=== PATIENT | female | born 1945 | race Caucasian/White ===

== ENCOUNTER → 2017-07-25 10:24 | Outpatient (CLI) | payer MEDICARE, OTHER, SELFPAY ==
[2017-07-25 11:51] LABS: Alanine Aminotransferase 22 IU/L (9-52); Albumin 4.3 g/dL (3.5-5.0); Albumin Globulin Ratio 1.3 (1.0-2.8); Alkaline Phosphatase 99 U/L (38-126); Aspartate Aminotransferase 25 IU/L (14-36); BUN Creatinine Ratio 27.5 (6-22); Bilirubin Total 0.6 mg/dL (0.2-1.3); Blood Urea Nitrogen 22 mg/dL (7-17); Calcium 9.5 mg/dL (8.4-10.2); Carbon Dioxide 26 mmol/L (22-32); Chloride 104 mmol/L (98-107); Cholesterol 219 mg/dL (140-199); Estimated Glomerular Filt Rate > 60.0 mL/min (>60); Globulin 3.2 g/dL (1.7-4.1); Glucose 95 mg/dL (80-110); HDL Cholesterol 60 mg/dL (40-60); HEMOLYSIS < 15 (0-50); LDL Cholesterol Calculated 128 mg/dL (<100); Potassium 4.1 mmol/L (3.4-5.1); Sodium 142 mmol/L (137-145); Total Protein 7.5 g/dL (6.3-8.2); Triglycerides 156 mg/dL (35-150)
== END ==
PROVIDERS: PCP Student in an Organized Health Care Education/Training Program; Visit Provider Student in an Organized Health Care Education/Training Program
DX: I10 Essential (primary) hypertension (principal)
CPT/HCPCS: 36415; 80053; 80061

== ENCOUNTER → 2017-07-26 13:49 | Outpatient (CLI) | payer MEDICARE, OTHER, SELFPAY | PROVIDERS: Family Provider Hospitalist; PCP Student in an Organized Health Care Education/Training Program; Visit Provider Student in an Organized Health Care Education/Training Program | DX: M85.832 Other specified disorders of bone density and structure, left forearm (principal) | CPT/HCPCS: 77080; 77081 ==

== ENCOUNTER → 2018-01-10 12:01 | Outpatient (CLI) | payer MEDICARE, OTHER, SELFPAY ==
--- NOTE | 2018-01-10 | DI.MG.S_ITS ---
BILATERAL DIGITAL SCREENING MAMMOGRAM 3D/2D WITH CAD: 01/10/2018 CLINICAL: Routine screening. Personal history of left breast cancer. Family history of breast cancer. Comparison is made to exams dated: 10/19/2016 mammogram, 10/19/2015 mammogram, and 10/13/2014 mammogram - [facility]. There are scattered fibroglandular elements in both breasts. Current study was also evaluated with a Computer Aided Detection (CAD) system. There are benign post operative findings in both breasts. There are a grouped calcifications in the right breast at 12 o'clock middle depth. There are a grouped calcifications in the left breast at 1 o'clock middle depth. No other significant masses or calcifications are seen in either breast. IMPRESSION: INCOMPLETE: NEEDS ADDITIONAL IMAGING EVALUATION The grouped calcifications in the right breast at 12 o'clock middle depth are indeterminate. Spot magnification views are recommended. The grouped calcifications in the left breast at 1 o'clock middle depth are indeterminate. Additional views with possible ultrasound are recommended. NOTE: For mammograms, a report in lay terms will be sent to the patient. Approximately 15% of breast malignancies will not be visualized mammographically. In the management of a palpable breast mass, a negative mammogram must not discourage biopsy of a clinically suspicious lesion. Electronically Signed By: Shante chakraborty/:01/10/2018 14:20:24 letter sent: Additional Imaging Needed ACR BI-RADS Category 0: Incomplete 3340F
== END ==
PROVIDERS: PCP Student in an Organized Health Care Education/Training Program; Visit Provider Student in an Organized Health Care Education/Training Program
DX: Z12.31 Encounter for screening mammogram for malignant neoplasm of breast (principal); Z85.3 Personal history of malignant neoplasm of breast; Z80.3 Family history of malignant neoplasm of breast
CPT/HCPCS: 77063; 77067

== ENCOUNTER → 2018-01-30 14:10 | Outpatient (CLI) | payer MEDICARE, OTHER, SELFPAY ==
--- NOTE | 2018-01-30 | DI.US.S_ITS ---
LIMITED ULTRASOUND OF LEFT BREAST: 01/30/2018 CLINICAL: Follow up from addtional views. Comparison is made to exams dated: 01/30/2018 mammogram, 01/10/2018 mammogram - [facility], 10/19/2016 and 10/19/2015 mammogram - [facility]. Real-time and Doppler ultrasound of the left breast upper outer quadrant were performed. Carter scale images of the real-time examination were reviewed. There is no ultrasound correlate for the previously noted increasing multiple grouped amorphous calcifications in the upper outer left breast at middle depth seen on comparison screening mammograms and described on diagnostic mammograms performed earlier today. There is demonstration of a known biopsy clip in the upper left breast, seen on comparison mammography. IMPRESSION: SUSPICIOUS OF MALIGNANCY There is no ultrasound correlate for the previously noted increasing multiple grouped amorphous calcifications in the upper outer left breast at middle depth seen on comparison screening mammograms and described on diagnostic mammograms performed earlier today. A two-site stereotactic biopsy is recommended. These results and recommendations were discussed with the patient at the time of the exam by the [facility] Radiologist Dr. Lance Ibrahim in person. Patient was notified that she would have to travel to the [facility] facility to undergo stereotactic biopsy, which she agreed to do. This exam was interpreted at Station ID: [id number]. Electronically Signed By: Carlos Lei M.D. ecl/:01/30/2018 18:50:37 letter sent: Biopsy Required Ultrasound BI-RADS: 4a Suspicious abnormality - low suspicion for malignancy
--- NOTE | 2018-01-30 | DI.US.S_ITS ---
LIMITED ULTRASOUND OF RIGHT BREAST: 01/30/2018 CLINICAL: Follow up from addtional views. Comparison is made to exams dated: 01/30/2018 mammogram, 01/10/2018 mammogram - [facility], 10/19/2016 and 10/19/2015 mammogram - [facility]. Real-time and Doppler ultrasound of the right breast 11-1 o'clock region were performed. Carter scale images of the real-time examination were reviewed. There is no ultrasound correlate for the previously noted 0.3 cm new grouped amorphous calcifications in the upper central right breast at middle depth (near the 12 o'clock position) on comparison screening and diagnostic mammograms. Targeted ultrasound also identifies an irregular hyperechoic region consistent with postsurgical scarring in the upper outer right breast at 11 o'clock position. This scarring demonstrates no vascularity on Doppler ultrasound. IMPRESSION: SUSPICIOUS OF MALIGNANCY No ultrasound correlate for the previously noted 0.3 cm new grouped amorphous calcifications in the upper central right breast at middle depth (near the 12 o'clock position) seen on screening and diagnostic mammography. A stereotactic biopsy is recommended. These results and recommendations were discussed with the patient at the time of the exam by the [facility] Radiologist Dr. Lance Ibrahim in person. Patient was notified that she would have to travel to the [facility] facility to undergo stereotactic biopsy, which she agreed to do. This exam was interpreted at Station ID: [id number]. Electronically Signed By: Carlos Lei M.D. ecl/:01/30/2018 18:51:06 letter sent: Biopsy Required Ultrasound BI-RADS: 4a Suspicious abnormality - low suspicion for malignancy
--- NOTE | 2018-01-30 | DI.MG.S_ITS ---
BILATERAL DIGITAL DIAGNOSTIC MAMMOGRAM 3D/2D POST LUMPECTOMY: 01/30/2018 CLINICAL: Additional evaluation requested from prior study. Personal history of breast cancer. Family history of breast cancer. Comparison is made to exams dated: 01/10/2018 mammogram - [facility], 10/19/2016 mammogram, and 10/19/2015 mammogram - [facility]. There are scattered fibroglandular elements in both breasts. There is a biopsy clip in the upper outer left breast at middle depth. There are multiple grouped amorphous calcifications in the upper outer left breast at middle depth. Two dominant groupings are identified. The more anterior superior group measures approximately 1.3 x 0.7 x 1.0 cm in extent and the more posterior inferior group measures approximately 0.6 x 0.5 x 0.6 cm in extent. These groupings have both increased since prior comparison exams. Postsurgical changes are identified in the upper outer right breast at posterior depth. There is an overlying linear scar marker. There are new grouped amorphous calcifications in the upper central right breast at middle depth (near the 12 o'clock position). This grouping measures 0.3 x 0.2 x 0.2 cm in extent. These calcifications are located approximately 3.5 cm medial to the postsurgical changes in the upper outer right breast. IMPRESSION: INCOMPLETE: NEEDS ADDITIONAL IMAGING EVALUATION 1) Increasing grouped amorphous calcifications in the upper outer left breast at middle depth. A targeted ultrasound is recommended for further evaluation. 2) New grouped amorphous calcifications in the upper central right breast at middle depth. A targeted ultrasound is recommended for further evaluation. This exam was interpreted at Station ID: [id number]. NOTE: For mammograms, a report in lay terms will be sent to the patient. Approximately 15% of breast malignancies will not be visualized mammographically. In the management of a palpable breast mass, a negative mammogram must not discourage biopsy of a clinically suspicious lesion. Electronically Signed By: Carlos Lei M.D. ecl/:01/30/2018 15:27:01 letter sent: Additional Imaging Needed ACR BI-RADS Category 0: Incomplete 3340F
== END ==
PROVIDERS: PCP Student in an Organized Health Care Education/Training Program; Visit Provider Student in an Organized Health Care Education/Training Program
DX: R92.1 Mammographic calcification found on diagnostic imaging of breast (principal); Z85.3 Personal history of malignant neoplasm of breast; Z80.3 Family history of malignant neoplasm of breast
CPT/HCPCS: 76642; 77066; G0279

== ENCOUNTER → 2018-05-10 15:49 | Outpatient (CLI) | payer MEDICARE, OTHER, SELFPAY ==
--- NOTE | 2018-05-10 | DI.RAD.S_ITS ---
PROCEDURE: XR KNEE LT 1TO2V INDICATIONS: PAIN IN LEFT KNEE TECHNIQUE: 2 views of the knee were acquired. COMPARISON: None. FINDINGS: Bones: No fractures or dislocations. No suspicious bony lesions. There is mild tricompartmental knee joint degeneration. Soft tissues: Kakwm-tg-vceonkye joint effusion. No suspicious soft tissue calcifications. IMPRESSION: Mild degenerative joint disease and small to moderate knee joint effusion. Dictated by: Lino Rod M.D. on 05/10/2018 at 17:41 Approved by: Lino Rod M.D. on 05/10/2018 at 17:42
== END ==
PROVIDERS: PCP Student in an Organized Health Care Education/Training Program; Visit Provider Student in an Organized Health Care Education/Training Program
DX: M25.562 Pain in left knee (principal); M17.12 Unilateral primary osteoarthritis, left knee; M25.462 Effusion, left knee
CPT/HCPCS: 73560

== ENCOUNTER → 2018-07-13 12:56 | Outpatient (CLI) | payer MEDICARE, OTHER, SELFPAY ==
--- NOTE | 2018-07-13 | DI.RAD.S_ITS ---
PROCEDURE: XR KNEE RT 3V INDICATIONS: RIGHT KNEE PAIN TECHNIQUE: 3 views of the knee were acquired. COMPARISON: [facility], [place], XR KNEE LT 1TO2V, 05/10/2018, 15:48. FINDINGS: Bones: Mild to moderate compartment osteophyte is seen. No fractures or dislocations. No suspicious bony lesions. No patella subluxation. Soft tissues: There is small to moderate suprapatellar joint effusion.. No suspicious soft tissue calcifications. IMPRESSION: Yunn-mv-lejkbrlx tricompartment osteoarthritis. No fracture or dislocation. Small to moderate joint effusion. Dictated by: Lance Ibrahim M.D. on 07/13/2018 at 14:32 Approved by: Lance Ibrahim M.D. on 07/13/2018 at 14:40
== END ==
PROVIDERS: PCP Student in an Organized Health Care Education/Training Program; Visit Provider Student in an Organized Health Care Education/Training Program
DX: M25.561 Pain in right knee (principal); M17.11 Unilateral primary osteoarthritis, right knee; M25.461 Effusion, right knee
CPT/HCPCS: 73562

== ENCOUNTER → 2019-03-26 14:02 | Outpatient (CLI) | payer MEDICARE, OTHER, SELFPAY ==
[2019-03-26 14:19] LABS: Bacteria Urine None Seen; RBC Urine None Seen (0-5/HPF)
[2019-03-26 14:40] LABS: Add Manual Diff / Slide Review NO; Basophils Absolute Auto 100 /uL (0-100); Basophils Percent Auto 1.2 % (0-2); Eosinophils Absolute Auto 100 /uL (0-450); Eosinophils Percent Auto 1.3 % (2-4); Hematocrit 44.8 % (36-46); Hemoglobin 15.4 g/dL (12.0-16.0); Lymphocytes Absolute Auto 1700 /uL (1100-4500); Mean Corpuscular HGB Conc 34.2 % (30-36); Mean Corpuscular Hemoglobin 31.3 PG (26-34); Mean Corpuscular Volume 91.5 fL (80-100); Monocytes Absolute Auto 500 /uL (0-900); Monocytes Percent Auto 10.1 % (3-14); Neutrophils Absolute Auto 2700 /uL (1500-7000); Neutrophils Percent Auto 54.4 % (50-75); Platelet Count 247 X10^3/uL (150-400); Red Cell Distribution Width 13.2 % (11.6-14.8)
[2019-03-26 14:55] LABS: Appearance Urine UA CLEAR; Bilirubin Urine UA NEGATIVE (NEGATIVE); Color Urine UA YELLOW; Glucose Urine UA NEGATIVE (Negative); Ketones Urine UA NEGATIVE (NEGATIVE); Leukocyte Esterase Urine UA NEGATIVE (NEGATIVE); Nitrite Urine UA NEGATIVE (Negative); Occult Blood Urine UA NEGATIVE (Negative); Protein Urine UA NEGATIVE (Negative); Urobilinogen Urine UA 0.2 E.U./dL (0.2)
[2019-03-26 15:08] LABS: Hemoglobin A1C% w Est Avg Glu 5.4 % (4.0-6.0)
[2019-03-26 15:12] LABS: Culture Indicated Urine Cult Not Indicated; Squamous Epithelial Cell Urine 0-1 /HPF (0-5/HPF); WBC Urine 0-1/HPF (0-5/HPF)
[2019-03-26 15:30] LABS: BUN Creatinine Ratio 23.8 (6-22); Blood Urea Nitrogen 19 mg/dL (7-17); Calcium 10.3 mg/dL (8.4-10.2); Carbon Dioxide 24 mmol/L (22-32); Chloride 105 mmol/L (98-107); Estimated Glomerular Filt Rate > 60.0 mL/min (>60); Glucose 91 mg/dL (80-110); HEMOLYSIS < 15 (0-50); Potassium 4.3 mmol/L (3.4-5.1); Sodium 139 mmol/L (137-145)
== END ==
PROVIDERS: PCP Student in an Organized Health Care Education/Training Program; Visit Provider Orthopaedic Surgery
DX: Z01.818 Encounter for other preprocedural examination (principal); Z01.812 Encounter for preprocedural laboratory examination; N39.9 Disorder of urinary system, unspecified; Z13.1 Encounter for screening for diabetes mellitus; R73.9 Hyperglycemia, unspecified
CPT/HCPCS: 36415; 80048; 81001; 83036; 85025; 93005

== ENCOUNTER → 2019-04-25 09:47 | Outpatient (CLI) | payer MEDICARE, OTHER, SELFPAY ==
--- NOTE | 2019-04-25 | DI.MRI.S_ITS ---
PROCEDURE: MR KNEE RT WO CON INDICATIONS: Unilateral primary osteoarthritis, right knee TECHNIQUE: Noncontrast sagittal PD fast spin echo and T2 fast spin echo with fat saturation, sagittal 3-D FLASH with fat saturation; coronal T1 spin echo and PD fast spin echo with fat saturation, and axial PD fast spin echo with fat saturation through the knee. COMPARISON: None. FINDINGS: Image quality: Excellent. Menisci: Macerated medial meniscal tear involving the body and anterior horn. There is abnormal signal extending to the superior and inferior articular surfaces as well as the periphery. Parameniscal cyst with ill-defined appearance measuring approximately 1 x 0.5 cm on image 19/7. Lateral meniscal tear is seen with marked truncation of the free margin of the body. Cruciate ligaments: Anterior cruciate ligament appears intact. Posterior cruciate ligament appears intact. Medial structures: The medial collateral ligament appears intact. Semimembranosus tendon appears intact. Visualized portions of the pes anserinus tendons appear normal. No abnormal bursal fluid. Lateral structures: The lateral collateral ligament intact. Biceps femoris tendon appears intact. Popliteus tendon grossly unremarkable. Iliotibial band appears intact. Anterior structures: Quadriceps tendon intact. Medial and lateral patellofemoral ligaments intact. There is mild patellar tendinopathy. Prepatellar and superficial infrapatellar subcutaneous edema/fluid. Bones and cartilage: No focal marrow contusion or discrete low signal fracture line. Within the medial compartment, diffuse partial-thickness loss of the femoral articular cartilage. There is surface fraying of the tibial cartilage without focal defect. Within the lateral compartment, diffuse partial-thickness loss of the femoral and tibial articular cartilage Within the patellofemoral compartment, diffuse partial-thickness loss of the patellar articular cartilage with surface fraying. No focal femoral trochlear cartilage defects seen. Joint space: Small joint effusion. Large Moon's cyst. This measures approximate 8 cm in the cephalocaudad dimension No specific evidence of intra-articular loose body. IMPRESSION: Severely ill-defined medial meniscal tear involving the body and anterior horn, with adjacent parameniscal cyst as detailed above Lateral meniscal tear with marked truncation of the free margin of the body Degenerative joint disease as above Small joint effusion Large Moon's cyst Dictated by: Pietro Ward M.D. on 04/25/2019 at 12:02 Approved by: Pietro Ward M.D. on 04/25/2019 at 12:16
== END ==
PROVIDERS: PCP Student in an Organized Health Care Education/Training Program; Referring Provider Student in an Organized Health Care Education/Training Program; Visit Provider Orthopaedic Surgery
DX: M17.11 Unilateral primary osteoarthritis, right knee (principal); S83.241A Other tear of medial meniscus, current injury, right knee, initial encounter; S83.281A Other tear of lateral meniscus, current injury, right knee, initial encounter; M25.461 Effusion, right knee; M71.21 Synovial cyst of popliteal space [Baker], right knee
CPT/HCPCS: 73721

== ENCOUNTER → 2019-08-26 10:27 | Outpatient (CLI) | payer MEDICARE, OTHER, SELFPAY ==
[2019-08-26 11:47] LABS: Add Manual Diff / Slide Review NO; Basophils Absolute Auto 0 /uL (0-100); Eosinophils Absolute Auto 100 /uL (0-450); Eosinophils Percent Auto 1.5 % (2-4); Hematocrit 42.8 % (36-46); Hemoglobin 14.5 g/dL (12.0-16.0); Lymphocytes Absolute Auto 1300 /uL (1100-4500); Lymphocytes Percent Auto 30.7 % (25-40); Mean Corpuscular Hemoglobin 31.1 PG (26-34); Mean Corpuscular Volume 91.7 fL (80-100); Monocytes Absolute Auto 500 /uL (0-900); Monocytes Percent Auto 10.9 % (3-14); Neutrophils Absolute Auto 2400 /uL (1500-7000); Neutrophils Percent Auto 55.9 % (50-75); Platelet Count 232 X10^3/uL (150-400); Red Blood Cell Count 4.66 X10^6/uL (4.0-5.2); Red Cell Distribution Width 13.3 % (11.6-14.8); White Blood Cell Count 4.3 X10^3/uL (4.5-11.0)
[2019-08-26 12:02] LABS: Alanine Aminotransferase 21 IU/L (<35); Albumin 4.3 g/dL (3.5-5.0); Albumin Globulin Ratio 1.5 (1.0-2.8); Alkaline Phosphatase 89 U/L (38-126); Aspartate Aminotransferase 31 IU/L (14-36); BUN Creatinine Ratio 26.3 (6-22); Bilirubin Total 0.6 mg/dL (0.2-1.3); Blood Urea Nitrogen 20 mg/dL (7-17); Calcium 9.6 mg/dL (8.4-10.2); Carbon Dioxide 25 mmol/L (22-32); Chloride 108 mmol/L (98-107); Cholesterol 231 mg/dL (140-199); Estimated Glomerular Filt Rate > 60.0 mL/min (>60); Globulin 2.8 g/dL (1.7-4.1); Glucose 97 mg/dL (80-110); HDL Cholesterol 67 mg/dL (40-60); HEMOLYSIS < 15 (0-50); LDL Cholesterol Calculated 137 mg/dL (<100); Potassium 4.4 mmol/L (3.4-5.1); Sodium 139 mmol/L (137-145); Total Protein 7.1 g/dL (6.3-8.2); Triglycerides 133 mg/dL (35-150)
[2019-08-26 12:31] LABS: Bacteria Urine None Seen; RBC Urine None Seen (0-5/HPF)
[2019-08-26 12:48] LABS: Appearance Urine UA CLEAR; Bilirubin Urine UA NEGATIVE (NEGATIVE); Color Urine UA YELLOW; Glucose Urine UA NEGATIVE (Negative); Ketones Urine UA NEGATIVE (NEGATIVE); Leukocyte Esterase Urine UA 1+ (NEGATIVE); Nitrite Urine UA NEGATIVE (Negative); Occult Blood Urine UA TRACE-LYSED (Negative); Protein Urine UA NEGATIVE (Negative); Urobilinogen Urine UA 0.2 E.U./dL (0.2)
[2019-08-26 12:53] LABS: Culture Indicated Urine Specimen Cultured; WBC Urine 1-5/HPF (0-5/HPF)
== END ==
PROVIDERS: PCP Student in an Organized Health Care Education/Training Program; Referring Provider Student in an Organized Health Care Education/Training Program; Visit Provider Student in an Organized Health Care Education/Training Program
DX: Z01.818 Encounter for other preprocedural examination (principal); I10 Essential (primary) hypertension; E78.5 Hyperlipidemia, unspecified; I48.20 Chronic atrial fibrillation, unspecified
CPT/HCPCS: 36415; 80053; 80061; 81001; 85025; 87086

== ENCOUNTER → 2019-09-02 15:28 | Outpatient (CLI) | payer MEDICARE, OTHER, SELFPAY ==
[2019-09-04 19:08] LABS: COVID19 Sendout Not Detected (Not Detect)
== END ==
PROVIDERS: PCP Student in an Organized Health Care Education/Training Program; Visit Provider Physician Assistant
DX: Z01.812 Encounter for preprocedural laboratory examination (principal)
CPT/HCPCS: 87635

== ENCOUNTER 2019-09-05 10:56 | Day surgery (SDC) | payer MEDICARE, OTHER, SELFPAY ==
[2019-08-28 12:48] VITALS: BMI 32.1
[2019-08-29 09:42] VITALS: BMI 32.1
[2019-09-05] VITALS (13 sets, daily range): BP systolic 103–145; BP diastolic 45–92; PULSE 69–82; RESP 11–17; TEMP 36.1–37; O2SAT 93–96; BMI 32.1
--- NOTE | 2019-09-05 | DI.RAD.S_ITS ---
PROCEDURE: XR KNEE RT 1TO2V INDICATIONS: TOTAL RIGHT KNEE TECHNIQUE: 2 view(s) of the knee acquired. COMPARISON: [facility], [place], XR KNEE RT 3V, 07/13/2018, 13:10. [facility], [place], XR KNEE LT 1TO2V, 05/10/2018, 15:48. FINDINGS: Bones: Patient is status post knee joint arthroplasty. Hardware components are in expected positions. Visualized bony structures are intact. Soft tissues: Overlying postoperative changes are noted. IMPRESSION: Normal alignment established after right total knee arthroplasty, with a surgical drain overlying the operative bed anteriorly. Dictated by: Jorge Luis Ashley M.D. on 09/05/2019 at 15:33 Approved by: Jorge Luis Ashley M.D. on 09/05/2019 at 15:33
[2019-09-05] MEDS: MELOXICAM 7.5 MG TABLET 15 MG PO (11:23)
[2019-09-05] MEDS: ACETAMINOPHEN 325 MG TABLET 975 MG PO (11:23)
[2019-09-05] MEDS: LACTATED RINGERS 1,000 ML 42 ML IV (11:42)
[2019-09-05] MEDS: VANCOMYCIN 1,000 MG/200 ML PIGGYBACK 200 MG IV (11:42)
--- NOTE | 2019-09-05 12:40 | PM.PREOP ---
Pre-operative Note COVID-19 COVID-19 status: Negative Interval Note History & Physical reviewed/Exam performed by Physician: Yes Changes to H&P: No
--- NOTE | 2019-09-05 12:40 | PM.OP.1 ---
Operative Date/Time/Diagnoses Date of procedure: 09/05/19 Time of procedure: 12:54 Pre-op diagnosis: Right knee OA Post-op diagnosis: same Procedure & Clinicians Procedure: Right total knee arthroplasty Same procedure as scheduled: Yes Indications: The patient has had progressively worsening right knee pain with radiographic changes consistent with arthritis. Non-operative management has failed and the patient has requested total knee replacement. The risks, benefits and alternatives to surgery were discussed with the patient prior to proceeding. Risks discussed included, but were not limited to, failure to relieve pain, stiffness, infection, nerve damage, deep venous thrombosis, pulmonary embolism, stroke, coma, heart attack, permanent paralysis and , as well as the potential need for eventual revision of the prosthetic. Surgeon: Ilana Perales Ase Certified Technician: Ashish Manley Click Yes if Unassisted: No Anesthesia Type: General and Spinal Operative Notes Findings: Severe right knee osteoarthritis, good stability Closure Type: primary Specimen(s): none sent Prosthetic devices, grafts, tissues, transplants, or devices: Perales and Nephew journey BCS 2 size 4 right femur, size 3 tibia, +9 poly, 35 by 7.5mm patella Applied: drain(s) Estimated Blood Loss (mL): 250 Blood products transfused: none Tourniquet time (min): 70 Procedure in detail: The patient was seen in the pre-operative area, where the patient identified the right knee as the operative site and this was marked with my initials. The patient received pre-operative antibiotics, and was taken to the operating room and placed on the operative table in the supine position. After satisfactory anesthesia, a multimedia services manager out was performed. The right leg was encircled with a tourniquet about the proximal thigh, and the leg was prepared from the toes to the tourniquet with ChloroPrep in the usual fashion and draped through sterile drapes. The leg was elevated and exsanguinated with Eschmark bandage and the tourniquet inflated to [250] mmHg pressure. The knee was approached through an approximately 18 cm incision centered over the patella and carried into the knee through a medial parapatellar arthrotomy. A portion of the medial and lateral meniscus was resected. Soft tissue was carefully mobilized around the patella the patella was measured with a caliper. Bone was resected from the patella and the patellar height was reconstituted with up an appropriate sized patellar component. A cover was then placed on the patella. A small amount of additional medial and lateral meniscus was resected. The visionare guide fit well to the distal femur. It looked like an appropriate distal femoral cut and the cut was made without difficulty. The rotation was assessed and the appropriate size femoral guide was placed on the distal femur and finishing cuts were made. There was no evidence of notching. The anterior, posterior and chamfer cuts were then made. The posterior osteophytes and soft tissues were then removed. The posterior capsule was injected with part of a mixture of 60 ml 0.25% Marcaine mixed with 20 ml Exparel for post operative pain control. The remainder of this mixture was injected into the capsule and subcutaneous tissues during cement curing. The tibia was prepared and the visionaire guide fit well to the distal tibia. The rotation was assessed. The patient was placed in extension residual medial and lateral meniscus as well as any residual bone was carefully resected. [No] additional tibia was resected. Hemostasis was achieved especially posteriorly. Additional local was injected into the posterior capsule. The extension gap was assessed and additional releases for gap balancing were performed as necessary. The femoral component was trial was placed and the notch was finished. Trial tibial and femoral components were then placed and the knee placed through a range of motion. Range of motion was [0-130], with good stability throughout the range. The trials were then removed, and the tibia was finished. The bone was prepared with pulsatile lavage, and dried with a sponge. Cement was applied and the final prosthetics placed. Excess cement was removed during and after cement curing. A brief Betadine soak was performed. After confirming there was no extruded cement posteriorly, the final tibial insert was placed. The knee was copiously irrigated and the tourniquet deflated. Hemostasis was obtained with the Bovie cautery. A drain was placed and brought out superolaterally. The capsule was closed with interrupted Vicryl suture. The subcutaneous layer was closed with barbed sutures, and the skin with a running 3-0 V-Lock suture and Surgical glue. An Aquacel Ag dressing was applied and the patient was taken to recovery having tolerated the procedure well. Complications: none Post-operative Condition: stable Disposition: Acute Care Plan for aftercare: The patient will be maintained on a standard total knee replacement protocol with weight bearing as tolerated. The patient will receive her warfarin and sequential compression devices for DVT prophylaxis. The patient will be discharged home when safe for the home environment.
[2019-09-05] MEDS: CEFAZOLIN 2 GM/100 ML FROZ.PIGGY IV ×2 (12:42→20:50)
[2019-09-05] MEDS: TRANEXAMIC ACID 1,000 MG VIAL 1000 MG INJ ×2 (13:00→14:32)
--- NOTE | 2019-09-05 13:19 | SUR.OPER ---
Supine on padded OR bed. Pillow under head, arms secured on padded armboards <90 degree abduction. Safety belt across torso. Non-operative leg secured with tape over blanket over lower leg. Operative leg secured in DeMayo/Matthew positioner. Foam padded brace at thigh of operative leg.
[2019-09-05] MEDS: BUPIVACAINE 0.25% W/ EPI 30 ML VIAL 60 ML INJ (13:23)
[2019-09-05] MEDS: BUPIVACAINE LIPOSOME 266 MG/20 ML VIAL INJ (13:23)
--- NOTE | 2019-09-05 15:50 | SUR.PHASEI ---
Transported patient to floor on inpatient bed in stable condition. GCS 15. All belongings to room with patient. Bedside nursing report given to CHERIE Oliva.
[2019-09-05] MEDS: ACETAMINOPHEN 325 MG TABLET 650 MG PO ×2 (16:33→20:50)
[2019-09-05] MEDS: LACTATED RINGERS 1,000 ML 100 ML IV (16:34)
[2019-09-05] MEDS: WARFARIN 5 MG TABLET PO (17:25)
--- NOTE | 2019-09-05 18:50 | PC.NURSE ---
Evening Shift Note- Patient arrived to room via bed from pacu at 1530. Patient admission and assessment completed. Patient alert and oriented and able to make needs known to staff. Patient pleasent, calm, and cooperative with care. No complaints of pain or discomfort. No complaints of N/V. Patient tolerated dinner without issue. Oriented patient to bed and bed controls, room, lights, bathroom, phone, menu, and call navarro/TV remote. Safety measures in place. Alarm activated. Call navarro and phone within reach. Will continue to monitor.
[2019-09-05] MEDS: METOPROLOL ER 50 MG TABLET PO (20:49)
[2019-09-05] MEDS: DOCUSATE 100 MG CAPSULE PO (20:49)
[2019-09-05] MEDS: VENLAFAXINE ER 37.5 MG CAP PO (20:51)
[2019-09-05] MEDS: diphenhydrAMINE 50 MG/ML VIAL 25 MG IV (23:46)
[2019-09-05] MEDS: ONDANSETRON 4 MG/2 ML INJ IV (23:46)
[2019-09-06] VITALS (7 sets, daily range): BP systolic 108–135; BP diastolic 59–74; PULSE 65–80; RESP 16–18; TEMP 35.9–36.6; O2SAT 86–99
--- NOTE | 2019-09-06 00:04 | PC.NURSE ---
Addendum entered by Samantha Harris R.N. 09/06/19 03:44: O2 sat noted to be down to 86% so placed on oxygen at 1L/min Original Note: Patient is alert and oriented. Breath sounds CTA with RA sat of 93%; on continuous oximetry. HRR. Denied nausea but then when up to BSC vomited 500cc; medicated with Zofran. BT present but denies flatus. Denies dysuria, frequency or urgency with urination. Able to move self in bed but needing walker and 1 assist to BSC as is weak and unsteady with feeling whoozy. Dressing covered with melanie wrap to right knee is CDI; hemovac is intact and compressed. CMS is intact. Complains of itching so medicated with Benadryl. Wearing bilateral calf SCD's. Denies pain.
[2019-09-06] MEDS: LACTATED RINGERS 1,000 ML 100 ML IV (01:40)
[2019-09-06] MEDS: CEFAZOLIN 2 GM/100 ML FROZ.PIGGY IV (05:01)
[2019-09-06 05:45] LABS: Hematocrit 37.7 % (36-46); Hemoglobin 12.4 g/dL (12.0-16.0)
[2019-09-06] MEDS: ASPIRIN EC 81 MG TABLET PO (09:12)
[2019-09-06] MEDS: CHOLECALCIFEROL (VITAMIN D3) 1,000 UNIT TABLET 2000 UNIT PO (09:12)
[2019-09-06] MEDS: ACETAMINOPHEN 325 MG TABLET 650 MG PO (09:12)
[2019-09-06] MEDS: DOCUSATE 100 MG CAPSULE PO (09:12)
[2019-09-06] MEDS: IBUPROFEN 400 MG TABLET PO (09:13)
[2019-09-06] MEDS: lisinopriL 5 MG TABLET PO (09:13)
[2019-09-06] MEDS: FISH OIL 1,000 MG CAPSULE 1000 MG PO (09:14)
--- NOTE | 2019-09-06 09:30 | PM.DS.1 ---
History of Present Illness History of Present Illness Date Patient Seen: 09/06/19 Time Patient Seen: 09:30 Chief complaint: *OPB* [id number] Narrative: She had severe right knee osteoarthritis and came to the hospital for right total knee arthroplasty. Discharge Providers Provider Discharge Date: 09/06/19 Primary care physician: Karyn Lyle PA-C Consults: 08/28/19 14:01 Consult to Anesthesiology Routine Comment: Consulting Provider: Anesthesiologist Reason for consultation: Surgeon requested re: Cardiac 09/05/19 10:08 Consult to Anesthesiology Routine Comment: Consulting Provider: Anesthesiologist Reason for consultation: Regional block for post operative pain control 09/05/19 16:13 Consult to Discharge Planning Routine Comment: Consult to Physical Therapy Evaluate & Treat Comment: Physician Instructions: postop TKA protocol Consult to Respiratory Therapy Evaluate & Treat Comment: Physician Instructions: Evaluate and treat Discharge provider: Ilana Perales MD Summary Hospital Course Discharge Diagnosis: Right knee OA. Right total knee arthroplasty. Hospital Course: She was taken to the operating room underwent a right total knee arthroplasty. She tolerated the procedure without difficulty. She was mobilized with nursing and physical therapy. She was noted to doing be doing well and was stable for discharge. Status at Discharge Cognitive/behavioral status at discharge: oriented Functional status at discharge: independent ambulation Overall status at discharge: patient is progressing back to baseline Time Spent with Patient Time spent: Less than 30 minutes Exam Vital Signs (past 8 hours): - 09/06/19 03:35 09/06/19 04:00 09/06/19 07:30 Temperature 97.5 F L 96.7 F L Pulse Rate 65 67 Respiratory Rate 16 18 Blood Pressure 108/59 L 115/59 L Pulse Oximetry 86 L 95 99 09/06/19 08:57 09/06/19 08:58 Temperature Pulse Rate 73 Respiratory Rate 16 Blood Pressure Pulse Oximetry 97 Oxygen Delivery Method Room Air Oxygen Flow Rate 1 Narrative Exam Narrative: Alert and oriented, HEENT is benign, calfs are soft bilaterally, dressing is dry she is neurologically intact distally mild pain with gentle range of motion in the knee Objective Labs Result Diagrams: 09/06/19 05:00 Labs: Laboratory Results - last 24 hr 09/06/19 05:00 Hgb 12.4 Hct 37.7 Discharge Plan Discharge Plan Patient Disposition: Home Discharge Med Rec/Prescriptions Prescriptions: New oxycodone 5 mg Tablet 5 mg PO Q3HR PRN (Reason: Pain, Moderate (4-6)) Qty: 30 RF: 0 Continued venlafaxine [Effexor XR] 37.5 MG capsule,extended release 24hr 37.5 mg PO HS Qty: 0 RF: 0 metoprolol succinate 50 mg Tablet Extended Release 24 Hr 50 mg PO BEDTIME RF: 0 aspirin 81 mg Tablet,Delayed Release (Dr/Ec) 81 mg PO DAILY RF: 0 warfarin 5 mg Tablet 5 mg PO DAILY RF: 0 lisinopril 5 mg Tablet 5 mg PO DAILY RF: 0 cholecalciferol (vitamin D3) [Vitamin D3] 50 mcg (2,000 unit) Capsule 50 mcg PO DAILY RF: 0 omega 2-egf-ujp-fish oil [Fish Oil] 1,000 mg (120 mg-180 mg) Capsule 1 cap PO DAILY RF: 0 Discharge Orders: Discharge (Order); Ordered 09/06/19 Ordered By: Ilana Perales Provider Discharge Instructions Diet: Diet as Tolerated Activity: Walk multiple times a day. Elevate your leg several times a day. Cold/Heat Therapy: Use ice multiple times a day. Other treatments: Resume Coumadin Skin/Wound/Dressing Care Skin care: Remove Octaviano wrap, okay to use if needed for swelling Report to your healthcare provider any signs of infection, such as:: chills, fever, night sweats, increased pain, unusual drainage and unusual redness Dressing: Keep dressing on. Okay to shower Visit Report/Discharge Packet Instructions: DI for Knee Replacement Stand Alone Forms: Surgery Discharge Discharge Data Primary Care Provider: Karyn Lyle Attending Provider: Ilana Perales VTE Deep Vein Thrombosis/Pulmonary Embolism Present on Admission: No
--- NOTE | 2019-09-06 10:47 | PT.IIE ---
Current Diagnoses Unilateral primary osteoarthritis, right knee (09/05/19) Surgery Performed Operation Date: 05/30/19 13:45 <No data on this case meets the specified criteria> Operation Date: 09/05/19 13:45 Actual Procedures p Total Knee Arthroplasty(Right) - Ilana Perales MD Surgical History (Last Updated 09/04/19 @ 12:19 by Kaylah Doyle RN) History of arthroplasty of right hip (Acute 06/2016) History of lumpectomy of right breast (Acute 2006) History of mitral valve replacement with bioprosthetic valve (Acute 06/1999) Hx of cholecystectomy (Acute 2003) Hx of hand surgery (Acute 05/2009) Hx of left breast biopsy (Acute 2013) Hx of right knee surgery (Acute 10/2002) Medical History (Last Updated 08/28/19 @ 13:58 by Kaylah Doyle RN) Anxiety (Acute) Arthritis (Acute) Atrial fibrillation (Acute 03/2017) Breast cancer (Acute 2006) Cardiomyopathy (Acute) Former smoker (Acute) GERD without esophagitis (Acute) Heart murmur (Acute) Hepatitis B (Acute) HTN (hypertension) (Acute) Insomnia (Acute) No vaccination-pt refuse (Acute) Non-ST elevated myocardial infarction (non-STEMI) (Acute 03/29/17) Osteoarthritis (Acute) Pancreatitis (Acute 2003) Physical Therapy Inpatient Evaluation/Re-Eval M1 PT/OT-IP Prior Functional Status Start: 09/06/19 08:25 Freq: NEEDED Status: Active Protocol: Document 09/06/19 09:50 (Rec: 09/06/19 10:47 [id number]) Medical Review Prior Functional Status Medical History Reviewed Yes Diet/Fluid Consistency Regular Communication no deficits noted. able to make needs known Mobility and Gait pt is independent ambulator and seldom use FWW/ SPC. She stated she has been difficulty walking d/t and walked with step to pattern and unable to tolerate uneven surface. She has not been mobile and home bound since COVID 19 outbreak. Activities of Daily Living and IADL's independent for ADLs and IADLs Social History Household Members spouse Living Arrangements House Number of Floors (Floors) One Floor Number of Stairs To Enter/Railing? 2 [place] with R rail Home Environment High Toilet,Walk in Shower, Built-In Shower Seat Home Equipment Front Wheel Walker,Straight Cane,Shower Seat with Backrest ,Hand Held Shower,Grab Bars In Shower Additional Social History Comment Pt lives with her in [facility] who is also retired and active. He will be able to assist if needed. Pt had a R PARESH 3 years ago and it went well and d/c with home health. Pt has a son and dtr lives miles away who are available to help if needed. Pt will go to [facility] starting from monday. M2 PT-IP Current Condition Start: 09/06/19 08:25 Freq: NEEDED Status: Active Protocol: Document 09/06/19 09:50 HH (Rec: 09/06/19 10:47 [email or web address]) Physical Therapy Current Condition Current Condition Evaluation Date 09/06/19 Treatment Diagnosis R TKA, difficulty in walking Onset Date 09/05/19 Weight Bearing Status Weight Bearing Status Weight Bear as Tolerated M3 PT-IP Subjective Start: 09/06/19 08:25 Freq: NEEDED Status: Active Protocol: Document 09/06/19 09:50 HH (Rec: 09/06/19 10:47 [email or web address]) Subjective Physical Therapy Visit Type Type Initial Evaluation Visit Start Time 09:50 Visit Stop Time 10:15 Total Visit Minutes [address] Number of PRESCRIPTIONIST Visits 0 Physical Therapy Visit Comments Patient Comments I feel like im ready to go home. Patient Goals To return home with her . Therapy Pain Assessment Pain When Pain Assessed During Mobility Pain Present Pain Present Pain Reported Location R knee Intensity 3 Scale Used Numeric (0 - 10) Description Aching Pain Management Techniques Timing of Activity with Medications M4 PT-IP Mobility and Gait Start: 09/06/19 08:25 Freq: NEEDED Status: Active Protocol: Document 09/06/19 09:50 HH (Rec: 09/06/19 10:47 [email or web address]) PT-Transfer Assessment Sit to and From Stand Sit to and from Stand Standby Assistance,Use of Upper Extremities Equipment Transfer Assistive Device Gait Belt,Front Wheeled Walker Orthotic/Prosthetic Devices or Brace: No Transfers Transfer Destination Chair Transfer Technique Stand Step Pivot Transfer Ability Level of Assist Standby Assistance,Use of Upper Extremities Comments Mobility Comments Pt was in chair upon assessment and just spoke with Dr. Perales. Surgeon was satisfied with her progress. Pt stated she has minimal pain and agreed to mobilize with PT. Pt stood up by pushing off from armrest and FWW, along with a staggered stance SBA. She then started with step to pattern to walk to hallway. Pt then progessed to semi step over pattern after 15 ft and walked another 70 ft with SBA and W/C follow. She then sat down in W/C and was wheeled to end of hallway for stair climbing. Pt completed safely with SBA after and returned to W/C and back to her room. She did a stand step pivot transfers from w/c to room chair SBA with FWW safely. She rest in chair comfortably. no discomfort noted. Call light placed within reach. Gait Assessment Gait Distance (Feet) 110 Assistive Devices Assistive Device Gait Belt,Front Wheeled Walker Orthotic/Prosthetic Devices or Brace: No Gait Deviations General Gait Pattern Antalgic,Decreased Stride Length,Decreased Feet Clearance,Step-to Gait Factors Limiting Gait Function Factors Limiting Gait Function Decreased Activity Tolerance, Decreased Strength,Limited Range of Motion,Pain,Poor Balance Comments Gait Comments see mobility comments. Stair Climbing Assessment Evaluation Level of Assist On Stairs Standby Assistance Devices Stair Climbing Assistive Devices Right Railing Technique/Endurance Stair Climbing Direction Ascend and Descend Stair Climbing Technique Step to Step Number of Steps Climbed 3 Query Text: Stair Climbing Set # Repetitions (reps) 2 Comments Stair Climbing Comments pt completed stair climbing safely with R rail SBA. She led with LLE to ascend then R LE to descend but with 2UEs on railing. No signs of LOB noted. PT-Balance Assessment Sitting Balance and Reactions Static Sitting Balance Ability Normal Dynamic Sitting Balance Ability Normal Standing Balance and Reactions Static Standing Balance Ability Normal Dynamic Standing Balance Ability Good Device Used FWW M5 PT-IP Objective Assessments Start: 09/06/19 08:25 Freq: NEEDED Status: Active Protocol: Document 09/06/19 09:50 (Rec: 09/06/19 10:47 [email or web address]) Orientation Orientation/Cognition Level of Alertness Alert Orientation Name,Age,Birthday,Month,Date, Year,Day of Week,Place, Situation Language Function Ability No Deficits Noted Safety Awareness Understands Safety Issues Memory Description No Deficits Noted Gross Range of Motion Upper Extremity ROM Assessment Within Functional Limits Lower Extremity ROM Assessment Right Impaired Impairments 8 - 90 knee AROM Strength Upper Extremity Strength Assessment Within Functional Limits Lower Extremity Strength Assessment Right Impaired Hip 4+/5 Knee 4/5 Ankle 5/5 Coordination Assessment Gross Coordination Gross Coordination WNL Sensation Assessment Sensation Gross Sensation WNL Muscle Tone Muscle Tone WNL Yes M6 PT-IP Treatment Start: 09/06/19 08:25 Freq: NEEDED Status: Active Protocol: Document 09/06/19 09:50 HH (Rec: 09/06/19 10:47 [email or web address]) Physical Therapy Treatment Exercises Exercises Ankle Pumps,Gluteal Sets,Quad Sets,Heel Slides Education Education Provided Precautions,Weight Bearing Status,Post-Op Packet,Safety M7 PT-IP Assessment and Plan Start: 09/06/19 08:25 Freq: NEEDED Status: Active Protocol: Document 09/06/19 09:50 HH (Rec: 09/06/19 10:47 [email or web address]) PT Summary Assessment and Plan Potential Rehabilitation Potential Excellent Status of Condition at Evaluation Stable Summary Impairments Pain,ROM,Strength,Balance,Bed Mobility,Transfers,Gait, Activity Tolerance Progress Towards Goals Safe For Discharge Assessment Summary This is a low complexity evaluation only for this 74 yo female s/p POD 1 R TKA. Pt was independent for all mobility and functional activities without AD. Pt did fairly well today who uses FWW to amb 110 ft and completed stair climbing with SBA for the entire session. She has good understanding for rehab POC and post op precautions. Pt is now safe to be d/c with hsuband assistance and outpatient PT to improve her mobility and strength. Frequency of Treatment Frequency Of Treatment Discharge Recommendations To Nursing Amount of Assist Needed Standby Assistance Discharge Recommendations PT Discharge Recommendations Home with Assistance, Outpatient PT Transportation Needs at Discharge Private Vehicle
--- NOTE | 2019-09-06 13:15 | PC.NURSE ---
Discharge: Pt feels ready to d/c home. Had nausea and vomiting during the night. Got some zofran. Nausea didn't return. Was able to take bkft w/out problems. No need for pain meds yet, tylenol and ibuprofen have been effective for pain. Able to void w/out problems. MD here and saw pt and gave d/c instructions. PT saw and given d/c instructions. Hemovac removed intact and dressing applied. Wound care instructions given. RX given. Reviewed d/c packet. Questions answered. Pt d/c home via auto w/ spouse.
--- NOTE | 2019-09-06 16:15 | CM.DANOTE ---
DCP: assessment: note: case received and discussed in Team Rounds. PT was to see pt and a dc order was in place. Pt admitted for a planned R knee surgery: Dr. Christpoher Perales. PT cleared her for home with spouse support and she left as planned at 1300: OUTPT PT planned at [facility].
== END 2019-09-06 11:50 | disposition home or self-care (01) ==
LOC: OR 11:02 → AC 11:02
PROVIDERS: PCP Student in an Organized Health Care Education/Training Program; Referring Provider Orthopaedic Surgery; Visit Provider Orthopaedic Surgery
PROC: 0SRC0JZ Replacement of Right Knee Joint with Synthetic Substitute, Open Approach (ICD-10-PCS; CPT 27447; principal; 2019-09-05 13:45)
DX: M17.11 Unilateral primary osteoarthritis, right knee (principal); I48.91 Unspecified atrial fibrillation; I25.2 Old myocardial infarction; Z79.01 Long term (current) use of anticoagulants; M81.0 Age-related osteoporosis without current pathological fracture; M16.11 Unilateral primary osteoarthritis, right hip; E66.9 Obesity, unspecified; Z68.32 Body mass index [BMI] 32.0-32.9, adult
CPT/HCPCS: 27447; 36415; 73560; 85014; 85018; 97161; 97530; C1776; A9270; C9290; J0690; J1100; J1200; J2250; J2274; J2405; J2704; J3010

== ENCOUNTER → 2020-02-11 11:10 | Outpatient (CLI) | payer MEDICARE, OTHER, SELFPAY ==
[2019-09-05 11:06] VITALS: BMI 32.1
[2020-02-11 12:31] LABS: Alanine Aminotransferase 27 IU/L (<35); Albumin 4.4 g/dL (3.5-5.0); Albumin Globulin Ratio 1.5 (1.0-2.8); Alkaline Phosphatase 94 U/L (38-126); Aspartate Aminotransferase 40 IU/L (14-36); BUN Creatinine Ratio 20.3 (6-22); Bilirubin Total 0.6 mg/dL (0.2-1.3); Blood Urea Nitrogen 15 mg/dL (7-17); Calcium 9.8 mg/dL (8.4-10.2); Carbon Dioxide 28 mmol/L (22-32); Chloride 107 mmol/L (98-107); Estimated Glomerular Filt Rate > 60.0 mL/min (>60); Globulin 2.9 g/dL (1.7-4.1); Glucose 99 mg/dL (80-110); HEMOLYSIS < 15 (0-50); Potassium 4.7 mmol/L (3.4-5.1); Sodium 140 mmol/L (137-145); Total Protein 7.3 g/dL (6.3-8.2)
== END ==
PROVIDERS: PCP Student in an Organized Health Care Education/Training Program; Referring Provider Student in an Organized Health Care Education/Training Program; Visit Provider Student in an Organized Health Care Education/Training Program
DX: R63.5 Abnormal weight gain (principal); R68.2 Dry mouth, unspecified; I10 Essential (primary) hypertension
CPT/HCPCS: 36415; 80053

== ENCOUNTER → 2020-04-27 11:56 | Outpatient (CLI) | payer MEDICARE, OTHER, SELFPAY ==
[2019-09-05 11:06] VITALS: BMI 32.1
[2020-04-27 14:21] LABS: COVID19 -Nasal RAPID Negative (Negative)
== END ==
PROVIDERS: PCP Student in an Organized Health Care Education/Training Program; Visit Provider Nurse Practitioner
DX: Z20.822 Contact with and (suspected) exposure to COVID-19 (principal)
CPT/HCPCS: 87635

== ENCOUNTER → 2021-06-28 14:14 | Outpatient (CLI) | payer MEDICARE, OTHER, SELFPAY ==
[2019-09-05 11:06] VITALS: BMI 32.1
== END ==
PROVIDERS: PCP Student in an Organized Health Care Education/Training Program; Referring Provider Student in an Organized Health Care Education/Training Program; Visit Provider Student in an Organized Health Care Education/Training Program
DX: Z13.820 Encounter for screening for osteoporosis (principal); Z78.0 Asymptomatic menopausal state; Z79.890 Hormone replacement therapy
CPT/HCPCS: 77080

== ENCOUNTER → 2022-05-16 15:07 | Outpatient (CLI) | payer MEDICARE, OTHER, SELFPAY ==
[2019-09-05 11:06] VITALS: BMI 32.1
--- NOTE | 2022-05-16 | DI.RAD.S_ITS ---
PROCEDURE: XR SHOULDER RT MIN 2V INDICATIONS: CHRONIC PAIN OF BOTH SHOULDERS TECHNIQUE: 3 views of the shoulder were acquired. COMPARISON: None. FINDINGS: Bones: No fractures or dislocations. Moderate acromioclavicular joint and glenohumeral joint osteoarthritic changes are seen with joint space narrowing, subchondral sclerosis and marginal osteophyte from earlier No suspicious bony lesions. Visualized ribs appear intact. Soft tissues: No suspicious soft tissue calcifications. IMPRESSION: Osteoarthritic changes in right acromioclavicular joint and glenohumeral joint. No fracture or dislocation. No gross soft tissue abnormalities. Dictated by: Lance Ibrahim M.D. on 05/16/2022 at 15:22 Approved by: Lance Ibrahim M.D. on 05/16/2022 at 15:23
--- NOTE | 2022-05-16 | DI.RAD.S_ITS ---
PROCEDURE: XR SHOULDER LT MIN 2V INDICATIONS: CHRONIC PAIN OF BOTH SHOULDERS TECHNIQUE: 3 views of the shoulder were acquired. COMPARISON: None. FINDINGS: Bones: No fractures or dislocations. Moderate acromioclavicular joint and glenohumeral joint osteoarthritic changes are seen. No suspicious bony lesions. Visualized ribs appear intact. Soft tissues: Ill-defined calcifications are noted in the region of subcoracoid bursa which may represent loose bodies. IMPRESSION: Moderate left shoulder joint osteoarthritis. No acute fracture or dislocation. Suggestion of loose bodies within subcoracoid bursa. Dictated by: Lance Ibrahim M.D. on 05/16/2022 at 15:45 Approved by: Lance Ibrahim M.D. on 05/16/2022 at 15:47
== END ==
PROVIDERS: PCP Student in an Organized Health Care Education/Training Program; Referring Provider Student in an Organized Health Care Education/Training Program; Visit Provider Student in an Organized Health Care Education/Training Program
DX: M25.511 Pain in right shoulder (principal); M25.512 Pain in left shoulder; G89.29 Other chronic pain; M19.012 Primary osteoarthritis, left shoulder
CPT/HCPCS: 73030

== ENCOUNTER → 2022-11-18 11:49 | Outpatient (CLI) | payer MEDICARE, OTHER, SELFPAY ==
[2019-09-05 11:06] VITALS: BMI 32.1
--- NOTE | 2022-11-18 | DI.RAD.S_ITS ---
PROCEDURE: XR CERVICAL SPINE 2V OR 3V INDICATIONS: neck pain TECHNIQUE: 3 view(s) of the cervical spine were acquired. COMPARISON: None. FINDINGS: Bones: No fractures or dislocations to the T1 level. Grade 1 anterolisthesis and slight kyphosis at C3-4. There is reversal of the normal cervical lordosis with a kyphotic apex at C5-6 were there is severe disc space loss and prominent disc osteophyte spur formation. Grade 1 anterolisthesis C7 on T1. Severe disc height loss at C5-6 and moderate disc height loss at C6-7. Prominent facet arthropathy on the left at C3-4. The lateral masses of C1 appear intact on the odontoid view. No suspicious bony lesions. Soft tissues: No prevertebral soft tissue swelling. IMPRESSION: 1. Cervical kyphosis due to severe disc and endplate degeneration at C4 through C6. This is probably accentuated by anterolisthesis at C3-4. Dictated by: Nereyda Andujar M.D. on 11/18/2022 at 19:49 Approved by: Nereyda Andujar M.D. on 11/18/2022 at 19:51
== END ==
PROVIDERS: PCP Student in an Organized Health Care Education/Training Program; Referring Provider Student in an Organized Health Care Education/Training Program; Visit Provider Student in an Organized Health Care Education/Training Program
DX: M47.812 Spondylosis without myelopathy or radiculopathy, cervical region (principal); M40.202 Unspecified kyphosis, cervical region; M43.13 Spondylolisthesis, cervicothoracic region; M54.2 Cervicalgia
CPT/HCPCS: 72040

== ENCOUNTER 2023-04-15 11:35 | Emergency (ER) | payer MEDICARE, OTHER, SELFPAY ==
[2019-09-05 11:06] VITALS: BMI 32.1
[2023-04-15] VITALS (15 sets, daily range): BP systolic 97–112; BP diastolic 55–60; PULSE 69–81; RESP 14–26; TEMP 36.9; O2SAT 67–100; BMI 29.2
--- NOTE | 2023-04-15 12:10 | DI.CT.S_ITS ---
PROCEDURE: CT CHEST ABD PEL W CON INDICATIONS: fall on eliquis right rib pain and ruq pain TECHNIQUE: After the administration of intravenous contrast, 5 mm thick sections acquired from the lung apices to the symphysis. 5 mm coronal and sagittal reformats were performed, with additional 7 mm MIP reformats through the lungs. For radiation dose reduction, the following was used: automated exposure control, adjustment of mA and/or kV according to patient size. COMPARISON: None. FINDINGS: Image quality: There is artifact associated with the metallic hardware. CHEST: Lower Neck: No enlarged lymph nodes. Thyroid: No thyroid nodules which require sonographic follow up, per consensus guidelines. Axillae: No enlarged lymph nodes. Chest Wall: Mildly displaced right lateral 8th and 9th rib fractures can be seen. Sternotomy wires are seen. Lungs and Pleura: Mild dependent atelectasis can be seen. Heart: Heart size is mildly enlarged. No pericardial effusion. There is a prosthetic mitral valve. Thoracic Vessels: Note is made of a mild dissection involving the distal descending thoracic aorta, measuring 3.8 cm in length. The aorta and pulmonary arteries demonstrate normal size. Mediastinum and Jessy: No enlarged lymph nodes. Esophagus: No wall thickening. No hiatal hernia. ABDOMEN: Liver: No solid mass. Gallbladder: Cholecystectomy. Biliary ducts: No biliary dilation. Pancreas: No ductal dilation. Spleen: Size is within normal limits. Adrenal Glands: No adrenal nodules. Kidneys and Ureters: No hydronephrosis. No solid mass. No complex renal cystic lesion which requires follow up. Stomach and Bowel: Normal colonic caliber, without significant wall thickening. Colonic diverticulosis is seen, without findings of active diverticulitis. No dilated loops of small bowel are seen. The stomach demonstrates no significant abnormality. A normal appendix is noted. Peritoneum: No abnormal intraperitoneal fluid. No free air. Ventral Wall: No significant ventral hernia. Abdominal Nodes: No retroperitoneal or mesenteric adenopathy by size criteria. Vessels: Aorta and inferior vena cava are normal in size. Incidental note is made of a circumaortic left renal vein. PELVIS: Pelvic Organs: The uterus appears normal for age. No adnexal masses are seen. Bladder: No bladder wall thickening, accounting for underdistention. Pelvic Nodes: No enlarged lymph nodes. Miscellaneous: No inguinal hernias are seen. Bones: Degenerative changes are seen throughout, particularly involving the T11-T12 and L3-L4 levels. No aggressive osseous abnormality. Right hip arthroplasty hardware is seen. 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 However, please correlate with patient history and patient's symptoms. Mildly displaced right lateral 8th and 9th rib fractures are seen. No associated pneumothorax is seen. A normal appendix is seen. Additional findings: Mild cardiomegaly Sternotomy with prosthetic mitral valve Cholecystectomy Circumaortic left renal vein Focal degenerative change at T11-T12 and L3-L4. Diverticulosis, without active diverticulitis Right hip arthroplasty hardware Note: Dr. Jung was not available to discuss this case at the time of this dictation. Case discussed by telephone with the charge nurse, Katie Gordon at 12:56 p.m. [place] time on April 15, 2023. Dr. Jung will call back if there are any questions. Dictated by: Mario Nunes M.D. on 04/15/2023 at 11:49 Approved by: Mario Nunes M.D. on 04/15/2023 at 11:58
[2023-04-15 12:44] LABS: Add Manual Diff / Slide Review NO; Basophils Absolute Auto 0 /uL (0-100); Basophils Percent Auto 0.4 % (0-2); Eosinophils Absolute Auto 0 /uL (0-450); Eosinophils Percent Auto 0.4 % (2-4); Hematocrit 33.1 % (36-46); Hemoglobin 10.9 g/dL (12.0-16.0); Lymphocytes Absolute Auto 1000 /uL (1100-4500); Lymphocytes Percent Auto 15.5 % (25-40); Mean Corpuscular HGB Conc 33.1 % (30-36); Mean Corpuscular Hemoglobin 29.2 PG (26-34); Mean Corpuscular Volume 88.2 fL (80-100); Monocytes Absolute Auto 700 /uL (0-900); Monocytes Percent Auto 10.6 % (3-14); Neutrophils Absolute Auto 4600 /uL (1500-7000); Neutrophils Percent Auto 73.1 % (50-75); Platelet Count 320 X10^3/uL (150-400); Red Blood Cell Count 3.75 X10^6/uL (4.0-5.2); Red Cell Distribution Width 14.8 % (11.6-14.8); White Blood Cell Count 6.3 X10^3/uL (4.5-11.0)
[2023-04-15 12:47] LABS: INR 1.9 (0.9-1.3); Prothrombin Time 22.4 SECONDS (9.4-12.5)
[2023-04-15 12:50] LABS: PTT Partial Thromboplastin Tim 40 SECONDS (25.1-36.5)
[2023-04-15 12:52] LABS: Alanine Aminotransferase 15 IU/L (<35); Albumin 4.1 g/dL (3.5-5.0); Albumin Globulin Ratio 1.2 (1.0-2.8); Alkaline Phosphatase 93 U/L (38-126); Aspartate Aminotransferase 24 IU/L (14-36); BUN Creatinine Ratio 17.6 (6-22); Bilirubin Total 0.7 mg/dL (0.2-1.3); Blood Urea Nitrogen 15 mg/dL (7-17); Calcium 9.5 mg/dL (8.4-10.2); Carbon Dioxide 25 mmol/L (22-32); Chloride 103 mmol/L (98-107); Estimated Glomerular Filt Rate > 60 mL/min (>60); Globulin 3.3 g/dL (1.7-4.1); Glucose 97 mg/dL (80-110); HEMOLYSIS < 15 (0-50); Potassium 4.3 mmol/L (3.4-5.1); Sodium 137 mmol/L (137-145); Total Protein 7.4 g/dL (6.3-8.2)
--- NOTE | 2023-04-15 13:12 | ED_ITS ---
HPI - Fall General Chief Complaint: Trauma Stated Complaint: Rt rib and back pain/ fall last wk Time Seen by Provider: 04/15/23 11:44 Source: patient and EMS Mode of arrival: EMS History of Present Illness HPI Narrative: Patient is a 77-year-old female history of hypertension atrial fibrillation on warfarin recent [place] with 2 stents presenting today with ground level fall on April 04. She reports that she tripped over a rolled up rug landed into the [facility]. She did hit her head but not sure if she lost consciousness. Since then she has had increasing right-sided rib pain. She feels like she has spasms regularly. Pain is definitely worse with movement. Pain has increased over the last 12:48 p.m. but she has had significant pain since the fall. For the last couple of days she has not been able to get up due to severe pain. She also complaining of some mild right knee pain she reports that the bruising has gotten better. Patient had 2 stents placed February 25 at [facility]. Records reviewed. Patient has takotsubo cardiomyopathy in 2018, hypertension hyperlipidemia generalized anxiety breast cancer GERD presented to the ED with a STEMI. She was taken to the rn cardiac cath found to have severe RCA disease received 2 stents in the RCA and after brief loss of vessel visualization was noted that the she had an RCA dissection. Intra-aortic balloon pump was placed she was intubated in the setting of critical illness started on Milrinone nitroglycerin an eptifibatide. EF 35-40%. She would episodes of paroxysmal atrial fibrillation during hospital stay started on amiodarone and Eliquis. Related Data Home Medications Medication Instructions Recorded Confirmed venlafaxine 37.5 mg 37.5 mg PO HS ##0 03/30/17 09/05/19 capsule,extended release 24 hr (Effexor XR) aspirin 81 mg tablet,delayed 81 mg PO DAILY 08/28/19 09/05/19 release lisinopril 5 mg tablet 5 mg PO DAILY 08/28/19 09/05/19 metoprolol succinate 50 mg 50 mg PO BEDTIME 08/28/19 09/05/19 tablet,extended release 24 hr warfarin 5 mg tablet 5 mg PO DAILY 08/28/19 09/05/19 cholecalciferol (vitamin D3) 50 50 mcg PO DAILY 07/09/20 07/09/20 mcg (2,000 unit) capsule (Vitamin D3) omega 3-dog-zpg-fish oil 1,000 mg 1 cap PO DAILY 09/05/19 09/05/19 (120 mg-180 mg) capsule (Fish Oil) Previous Rx's Medication Instructions Recorded oxycodone 5 mg tablet 5 mg PO Q3HR PRN Pain, Moderate 09/06/19 (4-6) #30 tabs ondansetron 4 mg disintegrating 4 mg PO Q8H PRN nausea and 04/15/23 tablet vomiting #10 tabs oxycodone-acetaminophen 5 mg-325 1 tab PO Q6H PRN pain #20 tabs 04/15/23 mg tablet (Percocet) Allergies Allergy/AdvReac Type Severity Reaction Status Date / Time Sulfa (Sulfonamide Allergy Severe Hives Verified 04/15/23 12:53 Antibiotics) Patient History Medical History (Updated 04/15/23 @ 15:15 by Taisha Jung DO) Cardiomyopathy Former smoker Insomnia No vaccination-pt refuse Atrial fibrillation (03/2017) GERD without esophagitis Pancreatitis (2003) Anxiety Arthritis Osteoarthritis HTN (hypertension) Heart murmur Breast cancer (2006) Hepatitis B Non-ST elevated myocardial infarction (non-STEMI) (03/29/17) Surgical History (Updated 09/04/19 @ 12:19 by Kaylah Doyle RN) History of lumpectomy of right breast (2006) History of arthroplasty of right hip (06/2016) Hx of right knee surgery (10/2002) Hx of cholecystectomy (2003) Hx of hand surgery (05/2009) Hx of left breast biopsy (2013) History of mitral valve replacement with bioprosthetic valve (06/1999) Social History household members: spouse Smoking Status: Former smoker alcohol intake: current Smoking Status: Former smoker alcohol intake frequency: 0-2 drinks per day Substance Use Type: does not use Exam Initial Vital Signs Initial Vital Signs: Vital Signs Pulse Rate 79 04/15/23 11:38 Blood Pressure 103/57 L 04/15/23 11:38 Pulse Oximetry 99 04/15/23 11:38 GENERAL: Alert pleasant 77-year-old female appears anxious in and in pain, afraid to move HEENT: Head atraumatic,EOMI, pupils reactive, face symmetric, moist mucous membranes CARDIOVASCULAR: Regular rate and rhythm without murmurs, rubs or gallops. RESPIRATORY: Breath sounds equal bilaterally, no wheezes rales or rhonchi. Tender right lateral ribs contusion no posteriorly around rib 8 ABDOMEN: Soft, nontender. Normoactive bowel sounds all 4 quadrants. No guarding or rebound. EXTREMITIES: Normal range of motion, no clubbing or edema. Neurovascularly intact NEUROLOGICAL: Alert and oriented x4.Normal gait and speech. SKIN: Warm, dry, no laceration, no petechiae, no rashes or lesions. Course Orders Ordered: Discontinued Medications Morphine Sulfate (Morphine 2 Mg/Ml Inj) 2 mg IV NOW ONE Stop: 04/15/23 13:25 Last Admin: 04/15/23 13:27 Dose: 2 mg Documented By: REMY Oxycodone/Acetaminophen (Oxycodone/Acetaminophen 5/325 Tablet) 1 tab PO NOW ONE Stop: 04/15/23 15:28 Last Admin: 04/15/23 15:38 Dose: 1 tab Documented By: REMY Vital Signs Vital signs: Vital Signs - 8 hr 04/15/23 11:38 04/15/23 11:38 04/15/23 11:43 Temperature 98.4 F Pulse Rate 79 78 Respiratory Rate 18 Blood Pressure 103/57 L 103/57 L Pulse Oximetry 99 99 Oxygen Delivery Method Room Air 04/15/23 11:46 04/15/23 11:46 04/15/23 11:55 Temperature Pulse Rate 73 Respiratory Rate 20 Blood Pressure 97/58 L 112/56 L Pulse Oximetry 100 Oxygen Delivery Method Room Air 04/15/23 11:55 04/15/23 12:00 04/15/23 12:00 Temperature Pulse Rate 74 Respiratory Rate 14 Blood Pressure 107/55 L Pulse Oximetry 86 L 100 Oxygen Delivery Method 04/15/23 12:36 04/15/23 13:00 04/15/23 13:30 Temperature Pulse Rate 73 69 74 Respiratory Rate 16 22 21 Blood Pressure Pulse Oximetry 97 100 95 Oxygen Delivery Method Room Air 04/15/23 14:00 Temperature Pulse Rate 77 Respiratory Rate 17 Blood Pressure Pulse Oximetry 97 Oxygen Delivery Method MDM - Fall Lab Data 04/15/23 12:25 04/15/23 12:25 Labs: Lab Results 04/15/23 Range/Units 12:25 WBC 6.3 (4.5-11.0) X10^3/uL RBC 3.75 L (4.0-5.2) X10^6/uL Hgb 10.9 L (12.0-16.0) g/dL Hct 33.1 L (36-46) % MCV 88.2 (80-100) fL MCH 29.2 (26-34) PG MCHC 33.1 (30-36) % RDW 14.8 (11.6-14.8) % Plt Count 320 (150-400) X10^3/uL Neut % (Auto) 73.1 (50-75) % Lymph % (Auto) 15.5 L (25-40) % [place] % (Auto) 10.6 (3-14) % Eos % (Auto) 0.4 L (2-4) % Baso % (Auto) 0.4 (0-2) % Neut # (Auto) 4600 (3156-0666) /uL Lymph # (Auto) 1000 L (6609-2299) /uL [place] # (Auto) 700 (0-900) /uL Eos # (Auto) 0 (0-450) /uL Baso # (Auto) 0 (0-100) /uL PT 22.4 H (9.4-12.5) SECONDS INR 1.9 H (0.9-1.3) APTT 40 H (25.1-36.5) SECONDS Sodium 137 (137-145) mmol/L Potassium 4.3 (3.4-5.1) mmol/L Chloride 103 (98-107) mmol/L Carbon Dioxide 25 (22-32) mmol/L BUN 15 (7-17) mg/dL Creatinine 0.85 (0.52-1.04) mg/dL Estimated GFR > 60 (>60) mL/min BUN/Creatinine Ratio 17.6 (6-22) Glucose 97 (80-110) mg/dL Calcium 9.5 (8.4-10.2) mg/dL Total Bilirubin 0.7 (0.2-1.3) mg/dL AST 24 (14-36) IU/L ALT 15 (<35) IU/L Alkaline Phosphatase 93 (38-126) U/L Total Creatine Kinase 30 (30-135) U/L Troponin I 0.020 (0.01-0.034) ng/mL Total Protein 7.4 (6.3-8.2) g/dL Albumin 4.1 (3.5-5.0) g/dL Globulin 3.3 (1.7-4.1) g/dL Albumin/Globulin Ratio 1.2 (1.0-2.8) Imaging Data CT scan - chest: Radiologist's Impression: PROCEDURE: CT CHEST ABD PEL W CON INDICATIONS: fall on eliquis right rib pain and ruq pain TECHNIQUE: After the administration of intravenous contrast, 5 mm thick sections acquired from the lung apices to the symphysis. 5 mm coronal and sagittal reformats were performed, with additional 7 mm MIP reformats through the lungs. For radiation dose reduction, the following was used: automated exposure control, adjustment of mA and/or kV according to patient size. COMPARISON: None. FINDINGS: Image quality: There is artifact associated with the metallic hardware. CHEST: Lower Neck: No enlarged lymph nodes. Thyroid: No thyroid nodules which require sonographic follow up, per consensus guidelines. Axillae: No enlarged lymph nodes. Chest Wall: Mildly displaced right lateral 8th and 9th rib fractures can be seen. Sternotomy wires are seen. Lungs and Pleura: Mild dependent atelectasis can be seen. Heart: Heart size is mildly enlarged. No pericardial effusion. There is a prosthetic mitral valve. Thoracic Vessels: Note is made of a mild dissection involving the distal descending thoracic aorta, measuring 3.8 cm in length. The aorta and pulmonary arteries demonstrate normal size. Mediastinum and Jessy: No enlarged lymph nodes. Esophagus: No wall thickening. No hiatal hernia. ABDOMEN: Liver: No solid mass. Gallbladder: Cholecystectomy. Biliary ducts: No biliary dilation. Pancreas: No ductal dilation. Spleen: Size is within normal limits. Adrenal Glands: No adrenal nodules. Kidneys and Ureters: No hydronephrosis. No solid mass. No complex renal cystic lesion which requires follow up. Stomach and Bowel: Normal colonic caliber, without significant wall thickening. Colonic diverticulosis is seen, without findings of active diverticulitis. No dilated loops of small bowel are seen. The stomach demonstrates no significant abnormality. A normal appendix is noted. Peritoneum: No abnormal intraperitoneal fluid. No free air. Ventral Wall: No significant ventral hernia. Abdominal Nodes: No retroperitoneal or mesenteric adenopathy by size criteria. Vessels: Aorta and inferior vena cava are normal in size. Incidental note is made of a circumaortic left renal vein. PELVIS: Pelvic Organs: The uterus appears normal for age. No adnexal masses are seen. Bladder: No bladder wall thickening, accounting for underdistention. Pelvic Nodes: No enlarged lymph nodes. Miscellaneous: No inguinal hernias are seen. Bones: Degenerative changes are seen throughout, particularly involving the T11-T12 and L3-L4 levels. No aggressive osseous abnormality. Right hip arthroplasty hardware is seen. 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 However, please correlate with patient history and patient's symptoms. Mildly displaced right lateral 8th and 9th rib fractures are seen. No associated pneumothorax is seen. A normal appendix is seen. Additional findings: Mild cardiomegaly Sternotomy with prosthetic mitral valve Cholecystectomy Circumaortic left renal vein Focal degenerative change at T11-T12 and L3-L4. Diverticulosis, without active diverticulitis Right hip arthroplasty hardware Note: Dr. Jung was not available to discuss this case at the time of this dictation. Case discussed by telephone with the charge nurse, Katie Gordon at 12:56 p.m. [place] time on April 15, 2023. Dr. Jung will call back if there are any questions. Dictated by: Mario Nunes M.D. on 04/15/2023 at 11:49 ECG Data Interpretation: Sinus rhythm rate 75 VT interval 224 QRS 84 QTC 477 T-wave inversion noted in 3 AV[address] elevations or depressions new from last EKG on 03/26/2019 [facility] Narrative Medical decision making narrative: Patient is 77-year-old female presents today with ongoing right-sided pain after ground level fall on April 04. She had complicated cardiac stent placement at the end of January. Is having quite a bit of pain today every time she moves breathes or someone is about to touch her. Definitely seems positional. Blood pressure on the lower end initially 103 over 57 few minutes later it quickly decreased to 97/58 and then increase to 112/56. He was recently started on metoprolol and amiodarone for paroxysmal atrial fibrillation Blood work reviewed: WBC 6.3, hemoglobin 10.9, hematocrit 33.1, platelets 320, INR 1.9, PTT 40, electrolytes within normal limits creatinine 0.[address] chest abdomen pelvis with contrast show nondisplaced rib fractures also shows mid dissection involving distal descending thoracic aorta felt most likely to be chronic Patient updated on test results including thoracic dissection which she is unaware of. Still having some pain and spasm in her right ribs. She was given morphine for pain an hour later got a little nauseous. 14:20 Dr. Arellano's [facility] vascular surgery at [facility] has reviewed imaging updated patient's symptoms test results aware of recent [place] and balloon pump at [facility] unfortunately no imaging to compare from [facility] or [facility]. However she did find that there was [facility] in 2018. However at this time she does not think this is acute there is nothing surgical to do medical management only. Blood pressure is within range. Agrees that outpatient follow-up is appropriate she is about 3 months out. At that time she will get a repeat CT scan and have an appointment at the same time. Discharge Plan Departure Patient Disposition: Home Clinical Impression: Fracture, rib, Aortic dissection, thoracic Instructions: Rib Fracture, Aortic Dissection Activity Restrictions/Additional Instructions: *You have been diagnosed with thoracic dissection, rib fracture *What to do: At this time you definitely need to follow up with vascular surgery I have spoken with Dr. Eileen Chawla at [facility]. She recommends outpatient follow-up it will likely be in about 3 months at which time you will have a repeat CT scan. At this time you have 2 broken ribs 8. And 9. You will be given medications for pain management. Use your incentive spirometer 5-10 times every hour Increase activity as tolerated mild activity such as walking is encouraged *Continue to take medications as directed Percocet 1 tablet every 6 hours if needed for [id number] pain--> [facility] *Follow up with your primary care provider in 2-3 days or call [phone] *Return to ER if you should have increasing pain shortness of breath chest pain back pain [or] any new, worsening or concerning symptoms Prescriptions: New oxycodone-acetaminophen [Percocet] 5-325 mg tablet 1 tab PO Q6H PRN (Reason: pain) Qty: 20 0RF ondansetron 4 mg tablet,disintegrating 4 mg PO Q8H PRN (Reason: nausea and vomiting) Qty: 10 0RF No Action venlafaxine [Effexor XR] 37.5 MG capsule,extended release 24hr 37.5 mg PO HS Qty: 0 metoprolol succinate 50 mg Tablet Extended Release 24 Hr 50 mg PO BEDTIME aspirin 81 mg Tablet,Delayed Release (Dr/Ec) 81 mg PO DAILY warfarin 5 mg Tablet 5 mg PO DAILY Rx Instructions: pt reports takes 5mg daily but on Tuesdays and Fridays takes 7.5mg lisinopril 5 mg Tablet 5 mg PO DAILY cholecalciferol (vitamin D3) [Vitamin D3] 50 mcg (2,000 unit) Capsule 50 mcg PO DAILY omega 9-mnk-kkj-fish oil [Fish Oil] 1,000 mg (120 mg-180 mg) Capsule 1 cap PO DAILY oxycodone 5 mg Tablet 5 mg PO Q3HR PRN (Reason: Pain, Moderate (4-6)) Qty: 30 0RF Referrals: Karyn Lyle PA-C [Primary Care Provider] - Eileen Chawla MD [Non-Staff] - Stand Alone Forms: Patient Portal/API
[2023-04-15] MEDS: MORPHINE 2 MG/ML INJ IV (13:27)
--- NOTE | 2023-04-15 14:00 | PC.NURSE ---
pt continues to have muscles spasms at intervals, pain is not constant
[2023-04-15 14:43] LABS: Creatine Kinase 30 U/L (30-135)
[2023-04-15] MEDS: OXYCODONE/ACETAMINOPHEN 5/325 TABLET 1 TAB PO (15:38)
== END 2023-04-15 16:58 | disposition home or self-care (01) ==
PROVIDERS: Emergency Provider Emergency Medicine; PCP Student in an Organized Health Care Education/Training Program
DX: S22.31XA Fracture of one rib, right side, initial encounter for closed fracture (principal); I71.019 Dissection of thoracic aorta, unspecified; M25.561 Pain in right knee; Z79.01 Long term (current) use of anticoagulants; Z79.899 Other long term (current) drug therapy; Z95.5 Presence of coronary angioplasty implant and graft; W01.0XXA Fall on same level from slipping, tripping and stumbling without subsequent striking against object, initial encounter
CPT/HCPCS: 36415; 71260; 74177; 80053; 82550; 84484; 85025; 85610; 85730; 93005; 93010; 96374; 99284; 99285; J2270; Q9967

== ENCOUNTER 2023-08-17 14:15 | Outpatient (RCR) | payer MEDICARE, OTHER, SELFPAY ==
[2019-09-05 11:06] VITALS: BMI 32.1
--- NOTE | 2023-09-04 14:13 | PC.NURSE ---
MONYM second time for pt to call us. Her last class she attended 08/17/23.
== END 2023-08-17 16:15 ==
LOC: CAR 14:15
PROVIDERS: PCP Student in an Organized Health Care Education/Training Program; Referring Provider Internal Medicine Cardiovascular Disease; Visit Provider Internal Medicine Cardiovascular Disease
DX: I25.10 Atherosclerotic heart disease of native coronary artery without angina pectoris (principal); I25.5 Ischemic cardiomyopathy; Z95.5 Presence of coronary angioplasty implant and graft
CPT/HCPCS: 93798

== ENCOUNTER → 2023-09-14 13:29 | Outpatient (CLI) | payer MEDICARE, OTHER, SELFPAY ==
[2019-09-05 11:06] VITALS: BMI 32.1
[2023-09-14 14:29] LABS: Hematocrit 42.5 % (36-46); Mean Corpuscular HGB Conc 32.9 % (30-36); Mean Corpuscular Hemoglobin 30.1 PG (26-34); Mean Corpuscular Volume 91.5 fL (80-100); Platelet Count 313 X10^3/uL (150-400); Red Blood Cell Count 4.65 X10^6/uL (4.0-5.2); Red Cell Distribution Width 17.3 % (11.6-14.8); White Blood Cell Count 5.6 X10^3/uL (4.5-11.0)
[2023-09-14 14:50] LABS: Alanine Aminotransferase 199 IU/L (<35); Albumin 4.9 g/dL (3.5-5.0); Alkaline Phosphatase 95 U/L (38-126); Aspartate Aminotransferase 245 IU/L (14-36); BUN Creatinine Ratio 14.6 (6-22); Bilirubin Total 0.9 mg/dL (0.2-1.3); Blood Urea Nitrogen 28 mg/dL (7-17); Calcium 9.9 mg/dL (8.4-10.2); Carbon Dioxide 24 mmol/L (22-32); Chloride 106 mmol/L (98-107); Cholesterol 192 mg/dL (140-199); Estimated Glomerular Filt Rate 27 mL/min (>60); Globulin 2.5 g/dL (1.7-4.1); Glucose 99 mg/dL (80-110); HEMOLYSIS < 15 (0-50); Potassium 4.6 mmol/L (3.4-5.1); Sodium 139 mmol/L (137-145); Total Protein 7.4 g/dL (6.3-8.2); Triglycerides 131 mg/dL (35-150); VLDL Cholesterol Calculated 26 mg/dL (2-30)
[2023-09-14 14:57] LABS: Creatine Kinase 3121 U/L (30-135); NT-proBNP (BNP-Adult 18+) 2130 pg/mL (<450)
[2023-09-14 15:01] LABS: HDL Cholesterol 126 mg/dL (40-60); LDL Cholesterol Calculated 40 mg/dL (<100)
[2023-09-14 16:05] LABS: Thyroid Stimulating Hormone 165 uIU/mL (0.47-4.68)
== END ==
PROVIDERS: Student in an Organized Health Care Education/Training Program; PCP Student in an Organized Health Care Education/Training Program; Referring Provider Nurse Practitioner; Visit Provider Nurse Practitioner
DX: G72.0 Drug-induced myopathy (principal); I50.42 Chronic combined systolic (congestive) and diastolic (congestive) heart failure; I25.5 Ischemic cardiomyopathy; I10 Essential (primary) hypertension; T46.6X5A Adverse effect of antihyperlipidemic and antiarteriosclerotic drugs, initial encounter; I25.10 Atherosclerotic heart disease of native coronary artery without angina pectoris; E78.5 Hyperlipidemia, unspecified; R53.83 Other fatigue
CPT/HCPCS: 36415; 80053; 80061; 82550; 83880; 84443; 85027

== ENCOUNTER → 2023-10-16 15:52 | Outpatient (CLI) | payer MEDICARE, OTHER, SELFPAY ==
[2019-09-05 11:06] VITALS: BMI 32.1
[2023-10-16 17:32] LABS: Alanine Aminotransferase 29 IU/L (<35); Albumin 4.6 g/dL (3.5-5.0); Albumin Globulin Ratio 1.5 (1.0-2.8); Alkaline Phosphatase 77 U/L (38-126); Aspartate Aminotransferase 32 IU/L (14-36); BUN Creatinine Ratio 13.9 (6-22); Bilirubin Total 0.6 mg/dL (0.2-1.3); Blood Urea Nitrogen 28 mg/dL (7-17); Calcium 10.4 mg/dL (8.4-10.2); Carbon Dioxide 24 mmol/L (22-32); Chloride 106 mmol/L (98-107); Creatine Kinase 93 U/L (30-135); Estimated Glomerular Filt Rate 25 mL/min (>60); Globulin 3.1 g/dL (1.7-4.1); Glucose 90 mg/dL (80-110); HEMOLYSIS < 15 (0-50); Potassium 4.6 mmol/L (3.4-5.1); Sodium 140 mmol/L (137-145); Total Protein 7.7 g/dL (6.3-8.2)
[2023-10-16 17:43] LABS: NT-proBNP (BNP-Adult 18+) 2390 pg/mL (<450)
== END ==
LOC: LAB 15:53
PROVIDERS: PCP Student in an Organized Health Care Education/Training Program; Referring Provider Nurse Practitioner; Visit Provider Nurse Practitioner
DX: I50.42 Chronic combined systolic (congestive) and diastolic (congestive) heart failure (principal); I25.5 Ischemic cardiomyopathy; R74.8 Abnormal levels of other serum enzymes; I25.10 Atherosclerotic heart disease of native coronary artery without angina pectoris
CPT/HCPCS: 36415; 80053; 82550; 83880

== ENCOUNTER → 2024-11-12 15:30 | Outpatient (CLI) | payer MEDICARE, OTHER, SELFPAY ==
[2019-09-05 11:06] VITALS: BMI 32.1
== END ==
PROVIDERS: PCP Student in an Organized Health Care Education/Training Program; Referring Provider Internal Medicine Nephrology; Visit Provider Internal Medicine Nephrology
DX: E78.2 Mixed hyperlipidemia (principal); I10 Essential (primary) hypertension; I48.0 Paroxysmal atrial fibrillation
CPT/HCPCS: 36415; 82610

== ENCOUNTER → 2024-11-13 15:32 | Outpatient (CLI) | payer MEDICARE, OTHER, SELFPAY ==
[2019-09-05 11:06] VITALS: BMI 32.1
[2024-11-13 16:22] LABS: Appearance Urine UA CLEAR; Bilirubin Urine UA NEGATIVE (NEGATIVE); Color Urine UA YELLOW; Glucose Urine UA NEGATIVE (Negative); Ketones Urine UA NEGATIVE (NEGATIVE); Leukocyte Esterase Urine UA NEGATIVE (NEGATIVE); Nitrite Urine UA NEGATIVE (Negative); Occult Blood Urine UA NEGATIVE (Negative); Protein Urine UA NEGATIVE (Negative); Specific Gravity Urine UA 1.010 (1.000-1.035); Urobilinogen Urine UA 0.2 E.U./dL (0.2)
[2024-11-13 16:24] LABS: pH Urine UA 6.0 (4.5-8.0)
[2024-11-13 16:28] LABS: Culture Indicated Urine Cult Not Indicated
[2024-11-13 16:34] LABS: Hematocrit 34.7 % (36-46); Hemoglobin 11.6 g/dL (12.0-16.0); Mean Corpuscular HGB Conc 33.3 % (30-36); Mean Corpuscular Hemoglobin 32.0 PG (26-34); Mean Corpuscular Volume 95.9 fL (80-100); Platelet Count 209 X10^3/uL (150-400)
[2024-11-13 16:58] LABS: Albumin 4.2 g/dL (3.5-5.0); Blood Urea Nitrogen 23 mg/dL (7-17); Calcium 9.2 mg/dL (8.4-10.2); Carbon Dioxide 23 mmol/L (22-32); Chloride 106 mmol/L (98-107); Estimated Glomerular Filt Rate 42 mL/min (>60); Glucose 132 mg/dL (70-99); HEMOLYSIS < 15 (0-50); Phosphorous 3.3 mg/dL (2.8-4.1); Potassium 4.6 mmol/L (3.4-5.1); Sodium 140 mmol/L (137-145)
[2024-11-13 16:59] LABS: HEMOLYSIS < 15 (0-50); Iron 80 ug/dL (37-170)
[2024-11-13 17:06] LABS: Protein (Total) Urine Random 8 mg/dL (0-12); Protein Creatinine Ratio Urine 0.09 GRAM/24H
[2024-11-13 17:11] LABS: Microalbumi Creatinin Ratio Ur 14.0 ug/mg CR (<30); Percent Iron Saturation 26 % (15-50); Total Iron Binding Capacity 307 ug/dL (265-497); Transferrin 256 mg/dL (206-381)
[2024-11-13 17:24] LABS: Vitamin D 25 Hydroxy (D3) 57.7 ng/mL (30.0-100.0)
[2024-11-13 17:34] LABS: Ferritin 18 ng/mL (11-264)
== END ==
PROVIDERS: PCP Student in an Organized Health Care Education/Training Program; Referring Provider Internal Medicine Nephrology; Visit Provider Internal Medicine Nephrology
DX: E78.2 Mixed hyperlipidemia (principal); I48.0 Paroxysmal atrial fibrillation; N18.4 Chronic kidney disease, stage 4 (severe); I10 Essential (primary) hypertension
CPT/HCPCS: 36415; 80069; 81001; 82043; 82306; 82570; 82728; 83540; 83550; 83970; 84156; 85027